=== PATIENT | female | born 1985 | race Caucasian/White ===

== ENCOUNTER 2018-02-23 14:17 | Emergency (ER) | payer OTHER ==
[~2018-02-23] VITALS: Ht 165.1 cm; Wt 57.0 kg
[~2018-02-23 14:17] MED LIST: ADDE20 PO; CYCL-36 PO; HYDR2TAB PO; MELA10TA3 PO; TIZA4 PO
[2018-02-23 14:31] VITALS: BP 118/83; PULSE 86; RESP 16; TEMP 98.4
--- NOTE | 2018-02-23 15:04 | PD ---
HPI Chief Complaint: Psychiatric Symptoms Time Seen by Provider: 14:59 Travel History International Travel<30 days: No Contact w/Intl Traveler<30days: No Traveled to known affect area: No History of Present Illness HPI Patient 32-year-old female presents emergency department for evaluation under Lawrence act. According to Lawrence act the patient is being driven by mother to a facility for psychiatric evaluation, when she revealed to her daughter that she was taking her for psychiatric evaluation she stated that she wanted to jump out of the car and was reluctant to go. Per the patient she asked mom to just warehouse order puller to the side of the road so she can get out. She denies any physical complaints at this time, denies any chest pain shortness breath abdominal pain nausea vomiting diarrhea constipation vaginal bleeding vaginal discharge head injury neck injury self-mutilation. Patient states she has no history of bipolar disorder psychosis or depression, denies any substance or alcohol abuse. Symptoms moderate, context as above, associated signs symptoms as above, duration unknown. PFSH Past Medical History Diminished Hearing: No Musculoskeletal: Yes (fx cervical c6 disc compression thoracic disc prob) Immunizations Current: Yes ?: Not LMP: 1 year ago. On depo shot Social History Alcohol Use: Yes (occ) Tobacco Use: Yes (1/2-1pk) Substance Use: No Allergies-Medications (Allergen,Severity, Reaction): Coded Allergies: No Known Allergies (Unverified , 06/02/16) Reported Meds & Prescriptions Reported Meds & Active Scripts Active Reported Adderall 20 mg (Dextroamphetamine/Amphetamine) 20 Mg Tab 20 Mg PO TID Melatonin (Melatonin-Pyridoxine) 1 Tab Tab 1 Tab PO DIRECTED Flexeril (Cyclobenzaprine HCl) 10 Mg Tab 10 Mg PO TID Zanaflex 4 mg (Tizanidine HCl) 4 Mg Tab 1 Tab PO Q8H Hydromorphone Hcl (Hydromorphone HCl) 2 Mg Tab 2 Mg PO Q4H PRN Review of Systems Except as stated in HPI: all other systems reviewed are Neg Physical Exam Narrative GENERAL: Well-developed well-nourished, provocatively dressed in no obvious distress. The patient is disheveled and smells highly of body odor peer SKIN: Focused skin assessment warm/dry. HEAD: Atraumatic. Normocephalic. EYES: Pupils equal and round. No scleral icterus. No injection or drainage. ENT: No nasal bleeding or discharge. Mucous membranes pink and moist. NECK: Trachea midline. No JVD. CARDIOVASCULAR: Regular rate and rhythm. No murmur appreciated. RESPIRATORY: No accessory muscle use. Clear to auscultation. Breath sounds equal bilaterally. GASTROINTESTINAL: Abdomen soft, non-tender, nondistended. Hepatic and splenic margins not palpable. MUSCULOSKELETAL: No obvious deformities. No clubbing. No cyanosis. No edema. NEUROLOGICAL: Awake and alert. No obvious cranial nerve deficits. Motor grossly within normal limits. Normal speech. PSYCHIATRIC: Patient somewhat bizarre, has a poor attention span, she seems easily startled when I try to talk to her, she denies a history of suicidal homicidal ideation, denies trying to jump out of the car today. She certainly is difficult to keep on subject. Data Data Last Documented VS Vital Signs Date Time Temp Pulse Resp B/P (MAP) Pulse Ox O2 Delivery O2 Flow Rate FiO2 02/23/18 14:31 98.4 86 16 118/83 (95) Orders Orders Complete Blood Count With Diff (02/23/18 14:43) Comprehensive Metabolic Panel (02/23/18 14:43) Thyroid Stimulating Hormone (02/23/18 14:43) Psych Screen (02/23/18 14:43) Drug Screen, Random Urine (02/23/18 14:43) Alcohol (Ethanol) (02/23/18 14:43) MDM Medical Decision Making Medical Screen Exam Complete: Yes Emergency Medical Condition: Yes Differential Diagnosis Substance-induced psychosis, tahs, schizophrenia, Narrative Course Patient room to the emergency department, she has no physical exam findings nor complaints of warrant further workup at this time. Basic labs been ordered including drug screen and alcohol level. She was discussed briefly with Laxmi nurse practitioner diagnostic medical sonographer for psychiatry. She will evaluate the patient later this afternoon. Patient is medically cleared for psychiatric evaluation at this time. Diagnosis Primary Impression: Psychosis Condition: Stable Cody Shin MD Feb 23, 2018 15:03
[2018-02-23 15:33] VITALS: BP 114/76; PULSE 83; RESP 16; TEMP 98.7; O2SAT 100
[2018-02-23 15:57] LABS: AUTOMATED NEUTROPHIL # 7.7 TH/MM3 (1.8-7.7); BASOPHIL # 0.1 TH/MM3 (0-0.2); BASOPHIL % 0.8 % (0.0-2.0); EOSINOPHIL # 0.1 TH/MM3 (0-0.4); EOSINOPHIL % 0.6 % (0.0-4.0); HEMOGLOBIN 13.9 GM/DL (11.6-15.3); LYMPH % 17.5 % (9.0-44.0); LYMPHOCYTE # 1.8 TH/MM3 (1.0-4.8); MEAN CELL VOLUME 93.8 FL (80.0-100.0); MEAN CORPUSCULAR HEMOGLOBIN 31.7 PG (27.0-34.0); MEAN CORPUSCULAR HGB CONC 33.8 % (32.0-36.0); MEAN PLATELET VOLUME 8.1 FL (7.0-11.0); MONO % 5.7 % (0.0-8.0); MONOCYTE # 0.6 TH/MM3 (0-0.9); NEUT % 75.4 % (16.0-70.0); PLATELET COUNT 391 TH/MM3 (150-450); RED BLOOD COUNT 4.37 MIL/MM3 (4.00-5.30); RED CELL DISTRIBUTION WIDTH 13.9 % (11.6-17.2); WHITE BLOOD COUNT 10.3 TH/MM3 (4.0-11.0)
[2018-02-23] MEDS ORDERED: HYDR-3133 PO (16:13)
[2018-02-23] MEDS ORDERED: CYCL10TA PO (16:13)
[2018-02-23] MEDS ORDERED: TRAZ50TA12 PO (16:13)
[2018-02-23 16:14] LABS: ALBUMIN 4.3 GM/DL (3.4-5.0); ALT (GPT) 23 U/L (10-53); AST (GOT) 18 U/L (15-37); BICARBONATE 23.6 MEQ/L (21.0-32.0); BLOOD UREA NITROGEN 11 MG/DL (7-18); CALCIUM 8.9 MG/DL (8.5-10.1); CHLORIDE 107 MEQ/L (98-107); GLOMERULAR FILTRATION RATE 82 ML/MIN (>89); GLUCOSE,RANDOM 97 MG/DL (74-106); SODIUM (NA) 141 MEQ/L (136-145)
[2018-02-23 16:25] LABS: ALKALINE PHOSPHATASE 63 U/L (45-117); TOTAL BILIRUBIN ADULT 0.4 MG/DL (0.2-1.0)
[2018-02-23 18:00] VITALS: BP 134/86; PULSE 96; RESP 16; TEMP 98.6; O2SAT 100
[2018-02-24 02:17] VITALS: BP 125/85; PULSE 93; RESP 18; TEMP 99.4; O2SAT 100
[2018-02-24 05:45] VITALS: BP 108/71; PULSE 98; RESP 20; TEMP 97.2; O2SAT 100
--- NOTE | 2018-02-24 12:39 | PD ---
Physical Exam Date Seen by Provider: Feb 24, 2018 Time Seen by Provider: 12:37 Narrative 32-year-old female previously medically cleared for psychiatric evaluation, has been seen and evaluated by psychiatric staff and deemed psychiatrically stable for discharge at this time. Patient remains medically stable at this time. Psychiatric follow-up will be based on the psychiatric note. Data Data Last Documented VS Vital Signs Date Time Temp Pulse Resp B/P (MAP) Pulse Ox O2 Delivery O2 Flow Rate FiO2 02/24/18 05:45 97.2 98 20 108/71 (83) 100 Room Air Orders Orders Complete Blood Count With Diff (02/23/18 14:43) Comprehensive Metabolic Panel (02/23/18 14:43) Thyroid Stimulating Hormone (02/23/18 14:43) Psych Screen (02/23/18 14:43) Drug Screen, Random Urine (02/23/18 14:43) Alcohol (Ethanol) (02/23/18 14:43) Ed Urine Pregnancytest Poc (02/23/18 15:32) Diet Regular Basic (02/24/18 Breakfast) Diet Regular Basic (02/24/18 Lunch) Labs Laboratory Tests Test 02/23/18 14:25 02/23/18 14:57 Urine Opiates Screen NEG Urine Barbiturates Screen NEG Urine Amphetamines Screen NEG Urine Benzodiazepines Screen NEG Urine Cocaine Screen NEG Urine Cannabinoids Screen NEG White Blood Count 10.3 TH/MM3 Red Blood Count 4.37 MIL/MM3 Hemoglobin 13.9 GM/DL Hematocrit 41.0 % Mean Corpuscular Volume 93.8 FL Mean Corpuscular Hemoglobin 31.7 PG Mean Corpuscular Hemoglobin Concent 33.8 % Red Cell Distribution Width 13.9 % Platelet Count 391 TH/MM3 Mean Platelet Volume 8.1 FL Neutrophils (%) (Auto) 75.4 % Lymphocytes (%) (Auto) 17.5 % Monocytes (%) (Auto) 5.7 % Eosinophils (%) (Auto) 0.6 % Basophils (%) (Auto) 0.8 % Neutrophils # (Auto) 7.7 TH/MM3 Lymphocytes # (Auto) 1.8 TH/MM3 Monocytes # (Auto) 0.6 TH/MM3 Eosinophils # (Auto) 0.1 TH/MM3 Basophils # (Auto) 0.1 TH/MM3 CBC Comment DIFF FINAL Differential Comment Blood Urea Nitrogen 11 MG/DL Creatinine 0.80 MG/DL Random Glucose 97 MG/DL Total Protein 8.0 GM/DL Albumin 4.3 GM/DL Calcium Level 8.9 MG/DL Alkaline Phosphatase 63 U/L Aspartate Amino Transf (AST/SGOT) 18 U/L Alanine Aminotransferase (ALT/SGPT) 23 U/L Total Bilirubin 0.4 MG/DL Sodium Level 141 MEQ/L Potassium Level 3.9 MEQ/L Chloride Level 107 MEQ/L Carbon Dioxide Level 23.6 MEQ/L Anion Gap 10 MEQ/L Estimat Glomerular Filtration Rate 82 ML/MIN Thyroid Stimulating Hormone 3rd Gen 0.667 uIU/ML Ethyl Alcohol Level LESS THAN 3 MG/DL MDM Medical Record Reviewed: Yes Supervised Visit with GENO: Yes Narrative Course 32-year-old female previously medically cleared for psychiatric evaluation, has been seen and evaluated by psychiatric staff and deemed psychiatrically stable for discharge at this time. Patient remains medically stable at this time. Psychiatric follow-up will be based on the psychiatric note. Diagnosis Primary Impression: Psychosis Patient Instructions: General Instructions Disposition: DISCHARGE HOME Condition: Stable Fernando Pérez Feb 24, 2018 12:39
--- NOTE | 2018-02-24 16:04 | PD.PSY.CON ---
Provisional Diagnosis Admission Date Dulzura I. Adjustment disorder with disturbance of conduct History of Present Illness Service Psychiatry Consult Requested By ER Reason for Consult Psychosis Primary Care Physician Unknown HPI The patient is a 32-year-old woman, domiciled alone in the [place], single, no kids, unemployed with psychiatric history of bipolar disorder, but no psychiatric hospitalizations, no suicide attempts. Presents emergency department for evaluation under Lawrence act. According to Lawrence act the patient is being driven by mother to a facility for psychiatric evaluation, when she revealed to her daughter that she was taking her for psychiatric evaluation she stated that she wanted to jump out of the car and was reluctant to go. Per the patient she asked mom to just pull up hand to the side of the road so she can get out. On psychiatric evaluation the patient reports that she has been in a good mood, denies depressive symptoms, she denies hopelessness, denies helplessness, denies suicidal and homicidal ideation, denies visual and auditory hallucinations. On longitudinal observation in the ER the patient has been calm , cooperative, appropriate, interacting appropriately with staff. No paranoia, no delusions, no disorganized speech or behavior present. Past Family Social History Coded Allergies: No Known Allergies (Unverified , 06/02/16) Reported Medications Cyclobenzaprine (Flexeril) 10 Mg Tab, 10 MG PO TID Y for MUSCLE PAIN, #90 TAB 0 Refills 02/23/18 Hydroxyzine HCl (Hydroxyzine HCl) 25 Mg Tab, PO DAILY, TAB 0 Refills 02/23/18 Trazodone (Trazodone) 50 Mg Tab, PO HS for Control Depression, #30 TAB 0 Refills 02/23/18 Discontinued Reported Medications Dextroamphetamine/Amphetamine (Adderall 20 mg) 20 Mg Tab, 20 MG PO TID 06/03/16 Melatonin-Pyridoxine (Melatonin) 1 Tab Tab, 1 TAB PO DIRECTED, TAB 06/02/16 Cyclobenzaprine Hcl (Flexeril) 10 Mg Tab, 10 MG PO TID, TAB 06/02/16 Tizanidine 4 mg (Zanaflex 4 mg) 4 Mg Tab, 1 TAB PO Q8H, TAB 06/02/16 Hydromorphone Hcl (Hydromorphone Hcl) 2 Mg Tab, 2 MG PO Q4H Y for PAIN SCALE 1 TO 7, TAB 06/02/16 Physical Exam Vital Signs Vital Signs Date Time Temp Pulse Resp B/P (MAP) Pulse Ox O2 Delivery O2 Flow Rate FiO2 02/24/18 12:54 02/24/18 05:45 97.2 98 20 100 Room Air Mental Status Examination Appearance: Appropriate Consciousness: Alert Orientation: x4 Motor Activity: Normal gait Speech: Unremarkable Language: Adequate Fund of Knowledge: Adequate Attention and Concentration: Adequate Memory: Unremarkable Mood: Appropriate Affect: Appropriate Thought Process & Associations: Intact Thought Content: Appropriate Hallucination Type: None Delusion Type: None Suicidal Ideation: No Suicidal Plan: No Suicidal Intention: No Homicidal Ideation: No Homicidal Plan: No Homicidal Intention: No Insight: Adequate Judgment: Adequate Assessment & Plan Problem List: (1) Adjustment disorder with disturbance of conduct ICD Codes: F43.24 - Adjustment disorder with disturbance of conduct Assessment & Plan: The patient does not present any concerning her significant psychiatric symptoms that require immediate psychiatric intervention at this moment. Patient denies depression, denies anxiety, denies psychosis and tash. She denies suicidal and homicidal ideation. The patient does not present any evidence of psychosis at this moment. Lawrence act will be lifted Assessment & Plan Estimated LOS: Jay Arnold MD Feb 24, 2018 16:04
== END 2018-02-24 12:50 | disposition home or self-care (01) ==
LOC: NEPJ 14:17
DX: F29 Unspecified psychosis not due to a substance or known physiological condition (principal); F43.24 Adjustment disorder with disturbance of conduct; F17.200 Nicotine dependence, unspecified, uncomplicated; Z79.899 Other long term (current) drug therapy; Z87.39 Personal history of other diseases of the musculoskeletal system and connective tissue; Z86.59 Personal history of other mental and behavioral disorders
CPT/HCPCS: 80053; 80307; 84443; 84703; 85025; 99283

== ENCOUNTER 2018-06-23 22:47 | Inpatient (IN) ==
--- NOTE | 2018-06-23 23:08 | ED ---
HPI General Chief complaint: Psychiatric Symptoms Stated complaint: Psych eval / NSBPD Time Seen by Provider: 06/23/18 23:05 History of Present Illness HPI narrative: 32 Y/O Female here under BA initiated by . According to paperwork the patient was hearing voices telling her to harm herself. The patient disputes this. She reports that she was having an argument with her mother. According to PD there is a recording of her acting bizarre that the mother took. Patient denies AH/VH, SI/HI, drug or alcohol use. Symptoms moderate, duration unknown, no obvious aggravating/alleviating factors. Related Data Home Medications Medication Instructions Recorded Confirmed alprazolam [Xanax] 0.25 mg PO BID 06/23/18 06/23/18 Allergies Allergy/AdvReac Type Severity Reaction Status Date / Time No Known Allergies Allergy Uncoded 06/02/16 11:09 Review of Systems ROS: all other systems reviewed are negative PMFSH Medical History Medical History Patient denies medical problems (Acute) Surgical History Surgical History No history of previous surgery (Acute) Social History Social History Substance History: No History of Abuse Second Hand Smoke Exposure: No Smoking Status: Never smoker How Often Do You Have a Drink Containing Alcohol: Never Recent Travel in [facility] within the Last 8 Weeks: No Recent Out of Country Travel within the Last 8 Weeks: No Exam Narrative Exam Narrative: GENERAL: Well-developed well-nourished female no acute distress SKIN: Warm and dry. HEAD: Atraumatic. Normocephalic. EYES: Pupils equal and round. No scleral icterus. No injection or drainage. ENT: No nasal bleeding or discharge. Mucous membranes pink and moist. NECK: Trachea midline. No JVD. CARDIOVASCULAR: Regular rate and rhythm. No murmur appreciated. RESPIRATORY: No accessory muscle use. Clear to auscultation. Breath sounds equal bilaterally. GASTROINTESTINAL: Abdomen soft, non-tender, nondistended. Hepatic and splenic margins not palpable. MUSCULOSKELETAL: No obvious deformities. No clubbing. No cyanosis. No edema. NEUROLOGICAL: Awake and alert. No obvious cranial nerve deficits. Motor grossly within normal limits. Normal speech. PSYCHIATRIC: Appropriate mood and affect; insight and judgment normal. Course Initial Documented Vital Signs Temperature 99 F 06/23/18 23:10 Pulse Rate 86 06/23/18 23:10 Blood Pressure 105/70 06/23/18 23:10 Pulse Oximetry 86 L 06/23/18 23:10 Last Documented Vital Signs Temperature 99 F 06/23/18 23:10 Pulse Rate 86 06/23/18 23:10 Blood Pressure 105/70 06/23/18 23:10 Pulse Oximetry 86 L 06/23/18 23:10 Medical Decision Making MDM Narrative Medical decision making narrative: Mental health screening discussed with the patient. Psychiatric screen ordered. Drug screen is positive for benzodiazepines otherwise lab work is unremarkable. The patient is medically cleared for psychiatric disposition. Medical Screen Exam Complete: Yes Emergency Medical Condition: Yes Differential Diagnosis Differential Diagnosis: Acute psychosis, adjustment reaction, substance-induced mood disorder, schizophrenia, bipolar disorder Lab Data Result diagrams: 06/23/18 23:25 06/23/18 23:25 POC Results POC Urine Results Negative Lab Results 06/23/18 06/23/18 06/23/18 Range/Units 23:25 23:25 23:25 WBC 8.9 (4.0-11.0) th/mm3 RBC 4.50 (4.00-5.30) mil/mm3 Hgb 14.5 (11.6-15.3) gm/dL Hct 42.1 (35.0-46.0) % MCV 93.6 (80.0-100.0) fL MCH 32.2 (27.0-34.0) pg MCHC 34.4 (32.0-36.0) % RDW 13.4 (11.6-17.2) % Plt Count 290 (150-450) th/mm3 MPV 8.7 (7.0-11.0) fL Neut % (Auto) 62.6 (16.0-70.0) % Lymph % (Auto) 28.3 (9.0-44.0) % [place] % (Auto) 6.2 (0.0-8.0) % Eos % (Auto) 1.9 (0.0-4.0) % Baso % (Auto) 1.0 (0.0-2.0) % Neut # (Auto) 5.6 (1.8-7.7) th/mm3 Lymph # (Auto) 2.5 (1.0-4.8) th/mm3 [place] # (Auto) 0.5 (0.0-0.9) th/mm3 Eos # (Auto) 0.2 (0.0-0.4) th/mm3 Baso # (Auto) 0.1 (0.0-0.2) th/mm3 WBC Differential . Differential Comment Auto diff final Sodium 142 (136-145) meq/L Potassium 3.9 (3.5-5.1) meq/L Chloride 112 H (98-107) meq/L Carbon Dioxide 20.2 L (21.0-32.0) meq/L Anion Gap 10 (5-15) meq/L BUN 16 (7-18) mg/dL Creatinine 0.72 (0.50-1.00) mg/dL Estimated GFR Greater than 89 (>89) mL/min Random Glucose 96 (74-106) mg/dL Calcium 8.9 (8.5-10.1) mg/dL Total Bilirubin 0.3 (0.2-1.0) mg/dL AST 12 L (15-37) U/L ALT 20 (10-53) U/L Alkaline Phosphatase 52 (45-117) U/L Total Protein 7.7 (6.4-8.2) g/dL Albumin 4.1 (3.4-5.0) g/dL TSH 1.440 (0.358-3.740) uIU/mL Urine Opiates Screen Neg (Neg) Ur Barbiturates Screen Neg (Neg) Ur Amphetamines Screen Neg (Neg) U Benzodiazepines Scrn Pos H (Neg) Urine Cocaine Screen Neg (Neg) U Cannabinoids Screen Neg (Neg) Serum Alcohol Less than 3 (0-5) mg/dL Discharge Plan Discharge Disposition Patient Disposition: 30 Still Patient Discharge Condition Condition: Stable Discharge Details Diagnosis: Encounter for medical clearance for patient hold Physicians Team ED Provider: Sharan Chand ED Midlevel Provider: Sukhi Mcgowan Primary Care Provider: UNKNOWN, Rxs /Orders / Referrals /Forms Prescriptions: No Action alprazolam [Xanax] 0.25 mg Tablet 0.25 mg PO BID RF: 0 Status ED Status: Medically Cleared
[2018-06-23 23:42] LABS: Baso # (Auto) 0.1 th/mm3 (0.0-0.2); Eos # (Auto) 0.2 th/mm3 (0.0-0.4); Eos % (Auto) 1.9 % (0.0-4.0); Hematocrit 42.1 % (35.0-46.0); Hemoglobin 14.5 gm/dL (11.6-15.3); Lymph # (Auto) 2.5 th/mm3 (1.0-4.8); Lymph % (Auto) 28.3 % (9.0-44.0); Mean Corpuscular HGB Conc 34.4 % (32.0-36.0); Mean Corpuscular Hemoglobin 32.2 pg (27.0-34.0); Mean Corpuscular Volume 93.6 fL (80.0-100.0); Mean Platelet Volume 8.7 fL (7.0-11.0); Mono # (Auto) 0.5 th/mm3 (0.0-0.9); Mono % (Auto) 6.2 % (0.0-8.0); Neut # (Auto) 5.6 th/mm3 (1.8-7.7); Neut % (Auto) 62.6 % (16.0-70.0); Platelet Count 290 th/mm3 (150-450); Red Cell Distribution Width 13.4 % (11.6-17.2); White Blood Count 8.9 th/mm3 (4.0-11.0)
[2018-06-23 23:48] LABS: Amphetamine Screen,Urine Neg (Neg); Barbiturate Screen,Urine Neg (Neg); Cannabinoid Screen,Urine Neg (Neg); Cocaine Screen,Urine Neg (Neg)
[2018-06-23 23:50] LABS: Opiate Screen,Urine Neg (Neg)
[2018-06-23 23:53] LABS: Alanine Aminotransferase 20 U/L (10-53); Albumin 4.1 g/dL (3.4-5.0); Anion Gap 10 meq/L (5-15); Aspartate Aminotransferase 12 U/L (15-37); Blood Urea Nitrogen 16 mg/dL (7-18); Calcium 8.9 mg/dL (8.5-10.1); Carbon Dioxide 20.2 meq/L (21.0-32.0); Chloride 112 meq/L (98-107); Glomerular Filtration Rate Greater Than 89 mL/min (>89); Glucose,Random 96 mg/dL (74-106); Potassium 3.9 meq/L (3.5-5.1); Sodium 142 meq/L (136-145)
[2018-06-24 00:03] LABS: Alkaline Phosphatase 52 U/L (45-117); Total Protein 7.7 g/dL (6.4-8.2)
[2018-06-24] MEDS ORDERED: LORazepam 1 MG Tablet PO PRN (12:08)
[2018-06-24] MEDS ORDERED: Bisacodyl 10 MG Supp RECTAL PRN (12:08)
[2018-06-24] MEDS ORDERED: Haloperidol Inj 5 MG/ML Ampul IV.PUSH PRN (12:08)
[2018-06-24] MEDS ORDERED: Aluminum/Magnesium/Simethacone Susp 30 ML UDC PO PRN (12:08)
--- NOTE | 2018-06-24 16:23 | P.HPPSY ---
Provisional Diagnosis Admission Date: June 24, 2018 15:03 [place] I.: Unspecified psychosis, R/O Schizophrenia, Hx of anxiety [place] II.: R/O personality disorder Competence Certification of Person's Competence To Provide Express and Informed Consent I have personally examined Radha Garduno, a person being served at [facility] on, June 24, 2018 1606. Express and informed consent means consent voluntarily given in writing, by a competent person, after sufficient explanation and disclosure of the subject matter involved to enable the person to make a knowing and willful decision without any element of force, fraud, deceit, duress, or other form of constraint or coercion. This person is 18 years of age or older, is not now known to be incompetent to consent to treatment with a guardian advocate, and does not have a health care surrogate or proxy currently making medical treatment decisions. I have found this person to be one of the following: [] Competent to provide express and informed consent, as defined above, for voluntary admission to this facility and is competent to provide express and informed consent for treatment. He/she has the consistent capacity to make well reasoned, willful, and knowing decisions concerning his or her medical or mental health treatment. The person fully and consistently understands the purpose of the admission for examination/placement and is fully capable of personally exercising all rights assured under [place] Incompetent to provide express and informed consent to voluntary admission, and this is incompetent to provide express and informed consent to treatment. The person must be transferred to involuntary status and a petition for a guardian advocate filed with the Circuit Court. [X] Refusing to provide express and informed consent to voluntary admission but is competent to provide express and informed consent for treatment. The person must be discharged or transferred to involuntary status. Form shall be completed within 24 hours of a person's arrival at the receiving facility and filed in the clinical record of each person: 1. Admitted on a voluntary basis 2. Permitted to provide express and informed consent to his/her own treatment 3. Allowed to transfer from involuntary to voluntary status 4. Prior to permitting a person to consent to his or her own treatment after having been previously found incompetent to consent to treatment. History of Present Illness Capacity: Has capacity History of Present Illness: The patient is a 32 year-old woman, domiciled with her mother claudia Lynch, single, unemployed, with psychiatric history of anxiety, but no previous psychiatric hospitalizations, no previous suicidal attempts, she has been seen once here in the ER on the [place] at, but clear, no significant medical history, who is here under BA initiated by . According to paperwork the patient was hearing voices telling her to harm herself. The patient disputes this. She reports that she was having an argument with her mother. According to PD there is a recording of her acting bizarre that the mother took. Patient denies AH/VH, SI/HI, drug or alcohol use. Symptoms moderate, duration unknown, no obvious aggravating/alleviating factors. Chart was reviewed. Collateral information from her mother was obtained. 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 Poorly. On my evaluation today the patient is truly very childish, an infantile voice, he stated that she is here because her mother does agree with her keeping her virginity "because I belong to a yazidi organization". 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 She is very bizarre, and oddly related. With a very bizarre affect, laughing inappropriately. She denies suicidal and homicidal ideation, she denies visual and auditory hallucinations PPHx: Anxiety, Xanax 1 mg 3 times daily prescribed by PCP, no previous admissions, no previous suicidal PMHx: No past medical Substance Hx: The patient denies the use of illegal drugs and alcohol Family Hx: No family psychiatric history Social Hx: Patient was born and raised in [place], she she lives in [facility] with her mother, single, unemployed, - Inpatient Certification I certify that the inpatient services were ordered in accordance with Medicare regulations governing the order. This includes certification that hospital inpatient services are reasonable and necessary and in the case of services not specified as inpatient-only under 42 CFR 419.22(n), that they are appropriately provided as inpatient services in accordance to with the 2-midnight benchmark under 43 CFR 412.3(e) I certify that inpatient psychiatric hospital services are medically necessary. Evaluation and treatment and/or diagnostic testing are expected to improve the patient's condition. The patient needs on a daily basis, active treatment furnished directly by or requiring the supervision of inpatient psychiatric facility personnel. Estimated Total Length of Stay (Days): 14 Plans for Post Hospital Care: Home Review of Systems Constitutional: Denies anorexia, Denies body ache(s), Denies chills, Denies daytime sleepiness, Denies excessive sweating, Denies fatigue, Denies fever(s), Denies headache(s), Denies increased appetite, Denies lack of energy, Denies malaise, Denies night sweats, Denies weakness, Denies weight gain, Denies weight loss, Denies other Eyes: Denies blind spots, Denies blurry vision, Denies bulging eyes, Denies change in vision, Denies double vision, Denies discharge, Denies dry eyes, Denies floaters, Denies irritation, Denies itchy eyes, Denies loss of vision, Denies pain, Denies requires corrective lenses, Denies sensitivity to light, Denies other Ears, Nose, Mouth, and Throat: Reports abnormal hearing, Denies bleeding gums, Denies bad breath, Denies change in voice, Denies dental pain, Denies difficulty swallowing, Denies dizziness, Denies dry mouth, Denies ear discharge , Denies ear pain, Denies facial pain, Denies headache(s), Denies hearing loss, Denies hoarseness, Denies lip swelling, Denies nosebleed, Denies mouth lesions, Denies mouth pain, Denies nasal congestion, Denies nasal discharge, Denies nasal obstruction, Denies nasal trauma, Denies neck lump, Denies neck pain, Denies nose pain, Denies pain with swallowing, Denies poor balance, Denies post nasal drip, Denies ringing in the ears, Denies sinus pain, Denies sinus pressure , Denies sore throat, Denies throat swelling, Denies tongue swelling, Denies other Cardiovascular: Denies chest pain at rest, Denies chest pain with activity, Denies excessive sweating, Denies fainting, Denies fast heart rate, Denies foot swelling, Denies generalized swelling, Denies irregular heart rhythm, Denies leg pain with activity, Denies leg sores, Denies leg swelling, Denies lightheadedness, Denies radiating jaw, neck or arm pain, Denies rapid, pounding , or irregular heartbeat, Denies shortness of breath, Denies shortness of breath with activity, Denies shortness of breath when lying down, Denies shortness of breath causing sudden awakening, Denies slow heart rate, Denies other Respiratory: Denies chest congestion, Denies cough, Denies coughing up blood, Denies excessive phlegm production, Denies pain on inspiration, Denies pain with cough, Denies shortness of breath, Denies shortness of breath with activity , Denies snoring, Denies stridor, Denies wheezing, Denies other Gastrointestinal: Denies belching, Denies black, tarry stools, Denies bloating, Denies bright, red blood in stools, Denies change in bowel habits, Denies constant urge to pass stool, Denies change in stools, Denies coffee ground vomit , Denies constipation, Denies cramping, Denies difficulty swallowing, Denies excessive passing of gas, Denies feeling full early, Denies heartburn, Denies incontinent of stools, Denies loose stools, Denies nausea, Denies pain with swallowing, Denies vomiting, Denies vomiting blood, Denies other Genitourinary: Denies abnormal vaginal bleeding, Denies absent period, Denies bleeding between periods, Denies blood in urine, Denies difficulty starting urination, Denies difficulty urinating, Denies dribbling after urination, Denies frequent nighttime urination, Denies genital itching, Denies genital lesions, Denies heavy periods, Denies hot flashes, Denies light periods, Denies nipple discharge, Denies painful intercourse, Denies painful periods, Denies painful urination, Denies pelvic pain, Denies prolapse symptoms, Denies sexual problems, Denies side pain, Denies urinary incontinence, Denies urinary urgency , Denies vaginal discharge, Denies vaginal dryness, Denies vaginal odor, Denies vaginal itching, Denies other Musculoskeletal: Denies abnormal walking, Denies back pain, Denies body aches, Denies decreased muscle mass, Denies deformity, Denies joint pain, Denies joint swelling, Denies limited joint movement, Denies loss of height, Denies muscle cramps, Denies muscle weakness, Denies neck pain, Denies numbness, Denies radiating pain into limb, Denies stiffness, Denies tingling, Denies other Skin/Breast: Reports acne, Denies bleeding lesions, Denies boil, Denies breast swelling, Denies breast skin changes, Denies breast pain, Denies breast lump, Denies change in breast shape, Denies change in hair, Denies change in skin color, Denies changing lesions, Denies dry skin, Denies excessive hair growth, Denies hair loss, Denies itching, Denies lesions, Denies nail changes, Denies new lesions, Denies nipple discharge, Denies non-healing lesions, Denies redness , Denies sensitivity to light, Denies rash, Denies skin pain, Denies skin ulcer , Denies sores, Denies stretch adkins, Denies unusual bruising, Denies wounds, Denies yellowing of the skin, Denies other Neurologic: Denies abnormal hearing, Denies abnormal movements, Denies abnormal speech, Denies abnormal walking, Denies behavioral changes, Denies burning sensations, Denies confusion, Denies dizziness, Denies fainting, Denies frequent falls, Denies headache(s), Denies lack of coordination, Denies localized weakness, Denies loss of vision, Denies memory loss, Denies numbness, Denies other visual disturbances, Denies radiating pain, Denies restless legs, Denies convulsions, Denies seizure-like activity, Denies sensory deficit, Denies tingling, Denies tingling/numbness/burning sensations, Denies tremor(s), Denies unsteadiness, Denies weakness, Denies other Psychiatric: Denies abnormal sleep pattern, Denies anxiety, Denies behavioral changes, Denies change in appetite, Denies change in sex drive, Denies confusion , Denies depression, Denies difficulty concentrating, Denies hearing things others do not hear, Denies hopelessness, Denies irritability, Denies lack of enjoyment, Denies memory loss, Denies mood swings, Denies panic attacks, Denies paranoia, Denies seeing things others do not see, Denies sensing things others do not sense, Denies tactile hallucinations, Denies thoughts of hurting/killing others, Denies thoughts of hurting/killing yourself, Denies other Endocrine: Denies cold intolerance, Denies excessive sweating, Denies flushing, Denies heat intolerance, Denies increased hunger, Denies increased thirst, Denies increased urination, Denies rapid, pounding, or irregular heartbeat, Denies other PMFSH - History History Provided By: Patient - Medical History Medical History: Medical History (Last Updated 06/23/18 @ 23:15 by Gopi Faulkner) Patient denies medical problems - Surgical History Surgical History: Surgical History (Last Updated 06/23/18 @ 23:16 by Gopi Faulkner) No history of previous surgery - Tobacco History Second Hand Smoke Exposure: No Smoking Status: Never smoker - Alcohol History How Often Do You Have a Drink Containing Alcohol: Never - Substance Use History Substance History: No History of Abuse - Travel History Recent Travel in the [place] Within the Last 8 Weeks: No Recent Travel Out of the Country Within the Last 8 Weeks: No - Immunization History Tetanus Immunization: Unsure Hx Influenza Vaccine This Season: No Medications and Allergies Active Medications: Active Medications Al Hydrox/Mg Hydrox/Simethicone (Mag-Al Plus Susp Liq) 30 ml PO Q6H PRN PRN Reason: DYSPEPSIA Al Hydroxide/Mg Hydroxide (Milk Of Magnesia Liq) 30 ml PO Q12H PRN PRN Reason: Mild Constipation Aripiprazole (Abilify) 5 mg PO DAILY RANCHO Bisacodyl (Dulcolax Supp) 10 mg RECTAL DAILY PRN PRN Reason: SEVERE CONSITIPATION Flumazenil (Romazecon Inj) 0.2 mg IV.PUSH Q1M PRN PRN Reason: OVERSEDATION Haloperidol Lactate (Haldol Inj) 1 mg IV.PUSH Q15M PRN PRN Reason: for severe agitation Lactulose (Lactulose Liq) 30 ml PO DAILY PRN PRN Reason: SEVERE CONSITIPATION Lorazepam (Ativan) 1 mg PO Q4H PRN PRN Reason: for CIWA 8-10 Lorazepam (Ativan) 2 mg PO Q2H PRN PRN Reason: for CIWA 11-14 Lorazepam (Ativan Inj) 2 mg IV.PUSH Q1H PRN PRN Reason: for CIWA 15-20 Lorazepam (Ativan Inj) 2 mg IV.PUSH Q15M PRN PRN Reason: for CIWA > 20 Lorazepam (Ativan Inj) 1 mg IV.PUSH Q4H PRN PRN Reason: for CIWA 8-10 Lorazepam (Ativan Inj) 2 mg IV.PUSH Q2H PRN PRN Reason: for CIWA 11-14 Senna/Docusate Sodium (Modesta-Colace) 1 tab PO BID RANCHO Sennosides (Senokot) 17.2 mg PO Q12H PRN PRN Reason: Moderate Constipation Allergies Allergy/AdvReac Type Severity Reaction Status Date / Time No Known Allergies Allergy Uncoded 06/02/16 11:09 Home Medications Medication Instructions Recorded Confirmed Type alprazolam [Xanax] 0.25 mg PO BID 06/23/18 06/23/18 History Results - Labs CBC & Chem 7: 06/23/18 23:25 06/23/18 23:25 Labs: Laboratory Results - last 24 hr 06/23/18 06/23/18 06/23/18 23:25 23:25 23:25 WBC 8.9 RBC 4.50 Hgb 14.5 Hct 42.1 MCV 93.6 MCH 32.2 MCHC 34.4 RDW 13.4 Plt Count 290 MPV 8.7 Neut % (Auto) 62.6 Lymph % (Auto) 28.3 Lea % (Auto) 6.2 Eos % (Auto) 1.9 Baso % (Auto) 1.0 Neut # (Auto) 5.6 Lymph # (Auto) 2.5 Lea # (Auto) 0.5 Eos # (Auto) 0.2 Baso # (Auto) 0.1 WBC Differential . Differential Comment Auto diff final Sodium 142 Potassium 3.9 Chloride 112 H Carbon Dioxide 20.2 L Anion Gap 10 BUN 16 Creatinine 0.72 Estimated GFR Greater than 89 Random Glucose 96 Calcium 8.9 Total Bilirubin 0.3 AST 12 L ALT 20 Alkaline Phosphatase 52 Total Protein 7.7 Albumin 4.1 TSH 1.440 Urine Opiates Screen Neg Ur Barbiturates Screen Neg Ur Amphetamines Screen Neg U Benzodiazepines Scrn Pos H Urine Cocaine Screen Neg U Cannabinoids Screen Neg Serum Alcohol Less than 3 Exam Vital signs: Vital Signs 06/23/18 23:10 06/24/18 02:12 06/24/18 02:14 Temperature 99 F 98.2 F Pulse Rate 86 64 Respiratory Rate 18 Blood Pressure 105/70 107/58 L Pulse Oximetry 98 98 06/24/18 06:27 Temperature Pulse Rate 84 Respiratory Rate 16 Blood Pressure 111/69 Pulse Oximetry 98 Intake & Output 08/06/24/18 06/24/18 18:59 06:59 18:59 Weight 54.683 kg Narrative: No withdrawal symptoms, no EPS, no psychomotor agitation retardation, no stiffness, no gait disturbance - Constitutional no acute distress - Routine HEENT Exam Head: Present: normocephalic Eye: Present: EOMI, PERRL Mental Status Examination Appearance: Appropriate Consciousness: Alert Orientation: x4 Motor Activity: Normal gait Speech: Unremarkable Language: Adequate Fund of Knowledge: Adequate Attention and Concentration: Adequate Memory: Unremarkable Mood: Oppositional Affect: Irritable, Labile Thought Process & Associations: Intact Thought Content: Bizarre thinking Hallucination Type: None Delusion Type: Bizarre, Paranoid Suicidal Ideation: Yes Suicidal Plan: No Suicidal Intention: No Homicidal Ideation: No Homicidal Plan: No Homicidal Intention: No Insight: Poor Judgment: Poor Assessment and Plan - Assessment (1) Unspecified psychosis Code(s): F29 - Unspecified psychosis not due to a substance or known physiological condition Status: Acute - Plan Plan: Estimated LOS: [] days My psychiatric evaluation the patient is quite childish, oppositional, with very inappropriate affect and oddly related, and stated that she does not need to be here anymore. 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 Apparently the patient has been stating that she wants to commit suicide at home, her mother is very concerned about her change in behavior and thought process, she has been quite delusional, calling 911 stating that she is being followed by the FBI. She also, as per mother, a times states she is 11 y/o. she has not been formally diagnosed with any psychiatric illness. She Does have anxiety treated by PCP, she is in Xanax 1 mg 3 times daily. Given her level of psychosis and going to admit the patient in psychiatry for stabilization and safety. I will start Abilify 5 mg daily. MARYWA protocol. Unclear if current presentation is secondary to a major psychotic disorder, related with substance abuse or personality disorder. Justification for Continued Inpatient Stay: Patient will be admitted in 2700 unit.
[2018-06-24] MEDS: ARIPiprazole 5 MG Tablet PO SCH (17:15)
[2018-06-24] MEDS: Senna/Docusate Sodium 8.6/50 MG Tablet PO SCH (20:30)
[2018-06-25] MEDS: ARIPiprazole 5 MG Tablet PO SCH (09:17)
[2018-06-25] MEDS: Senna/Docusate Sodium 8.6/50 MG Tablet PO SCH ×2 (09:17→20:58)
--- NOTE | 2018-06-25 15:25 | P.PNPSY ---
Subjective Remarks: This is a request for second opinion. Admission note was reviewed and I agree with the history. Patient was seen and case was discussed with nursing. Today , patient has poor insight concerning her admission. She denies all of her behaviors and thoughts at home. She is childlike in behavior with a whimsical affect. She denies auditory or visual hallucinations. Denies suicidal or homicidal ideation intent or plan. Mental Status Examination Appearance: Appropriate Consciousness: Alert Orientation: x4 Motor Activity: Normal gait Speech: Unremarkable Language: Adequate Fund of Knowledge: Adequate Attention and Concentration: Adequate Memory: Unremarkable Mood: Appropriate Affect: Labile Thought Process & Associations: Intact Thought Content: Bizarre thinking Hallucination Type: None Delusion Type: Bizarre, Paranoid Suicidal Ideation: Yes Suicidal Plan: No Suicidal Intention: No Homicidal Ideation: No Homicidal Plan: No Homicidal Intention: No Insight: Poor Judgment: Poor Assessment and Plan - Assessment (1) Unspecified psychosis Code(s): F29 - Unspecified psychosis not due to a substance or known physiological condition Status: Acute - Plan Plan: I agree with the first opinion to continue petition. Criteria include acute psychosis Justification for Continued Inpatient Stay: Patient would decompensate in a less restrictive setting
[2018-06-26] MEDS: ARIPiprazole 5 MG Tablet PO SCH (08:21)
[2018-06-26] MEDS: Senna/Docusate Sodium 8.6/50 MG Tablet PO SCH ×2 (08:21→21:04)
--- NOTE | 2018-06-26 13:43 | P.PNPSY ---
Subjective Remarks: Patient was seen and case discussed with nursing. Nursing spoke with the mom who says that patient has been acting bizarre and paranoid for the last year. Patient denies this and continues to have poor insight. Patient remains childlike and guarded. Describes her mood today as "tired." No outbursts, getting along well with her roommate. Mental Status Examination Appearance: Appropriate Consciousness: Alert Orientation: x4 Motor Activity: Normal gait Speech: Unremarkable Language: Adequate Fund of Knowledge: Adequate Attention and Concentration: Adequate Memory: Unremarkable Mood: Appropriate Affect: Labile Thought Process & Associations: Intact Thought Content: Bizarre thinking Hallucination Type: None Delusion Type: Bizarre, Paranoid Suicidal Ideation: Yes Suicidal Plan: No Suicidal Intention: No Homicidal Ideation: No Homicidal Plan: No Homicidal Intention: No Insight: Poor Judgment: Poor Assessment and Plan - Assessment (1) Unspecified psychosis Code(s): F29 - Unspecified psychosis not due to a substance or known physiological condition Status: Acute - Plan Plan: Continue current treatment plan Justification for Continued Inpatient Stay: Patient would decompensate in a less restrictive setting
[2018-06-27] MEDS: Senna/Docusate Sodium 8.6/50 MG Tablet PO SCH ×2 (08:41→21:30)
[2018-06-27] MEDS: ARIPiprazole 5 MG Tablet PO SCH (08:41)
[2018-06-27] MEDS ORDERED: ARIPiprazole 5 MG Tablet PO SCH (14:05)
--- NOTE | 2018-06-27 14:12 | P.PNPSY ---
Subjective Remarks: The patient was seen today for psychiatric reevaluation. Case was widely discussed with nursing staff. Documentation from Dr. collins reviewed. My psychiatric evaluation today I find a patient that is calm, superficially cooperative, very childish and oddly related. The patient states that she feels fine, she describes her mood as happy, she says that she needs to be discharged because she has a trip coming very soon. 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 Patient says that she is a singular similar to "[place]". The patient seems to be quite fixed and insight less about the idea of working for the [employer]. However, most of the time the patient remains quite lineal, logical and relevant denies suicidal enemas ideation, she denies visual and auditory hallucinations Mental Status Examination Appearance: Appropriate Consciousness: Alert Orientation: x4 Motor Activity: Normal gait Speech: Unremarkable Language: Adequate Fund of Knowledge: Adequate Attention and Concentration: Adequate Memory: Unremarkable Mood: Appropriate Affect: Labile Thought Process & Associations: Intact Thought Content: Bizarre thinking Hallucination Type: None Delusion Type: Bizarre, Paranoid Suicidal Ideation: Yes Suicidal Plan: No Suicidal Intention: No Homicidal Ideation: No Homicidal Plan: No Homicidal Intention: No Insight: Poor Judgment: Poor Assessment and Plan - Assessment (1) Unspecified psychosis Code(s): F29 - Unspecified psychosis not due to a substance or known physiological condition Status: Acute - Plan Plan: Patient continues to be fixed in the idea that she belongs to the [employer], and 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 Patient also seems to be quite immature and at times very childish. However, her thought process is quite logical, coherent and relevant. She denies any perceptual disturbances, denies suicidal and homicidal ideation. There is no agitation or aggressive behavior. Patient's presentation with her feet,/complex,/or stricture delusion seems to be congruent with a delusional disorder. Increase Abilify to 10 mg Justification for Continued Inpatient Stay: Patient is acutely delusional.
[2018-06-28] MEDS: Senna/Docusate Sodium 8.6/50 MG Tablet PO SCH ×2 (08:45→21:01)
--- NOTE | 2018-06-28 14:35 | P.PNPSY ---
Subjective Remarks: The patient was seen today for psychiatric reevaluation. The case was discussed with nursing staff. I also got collateral information from her mother Laly. The patient continues to be very childish, also acting very bizarre, but she reports to be in a good mood, denies depressive symptoms, she denies suicidal and homicidal ideation. The patient continues to be focusing be discharged because she has an upcoming concert in [place] in 2 weeks "and the [facility] is already coordinating that". 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 as per mother, the patient has been presenting psychotic symptoms for about 2 years now. But at the same time the patient has been more isolated, frequently talking to herself, acting very bizarre, she has change in her interpersonal relationships coming of being a very friendly person to having no friends. Patient has been spending a lot of money in the last years, she has been traveling to multiple countries and putting herself in danger. Her mother clarifies that the patient has being diagnosed with schizoaffective disorder, but no psychotropic medication has been tried so far. Mental Status Examination Appearance: Appropriate Consciousness: Alert Orientation: x4 Motor Activity: Normal gait Speech: Unremarkable Language: Adequate Fund of Knowledge: Adequate Attention and Concentration: Adequate Memory: Unremarkable Mood: Appropriate Affect: Labile Thought Process & Associations: Intact Thought Content: Bizarre thinking Hallucination Type: None Delusion Type: Bizarre, Paranoid Suicidal Ideation: Yes Suicidal Plan: No Suicidal Intention: No Homicidal Ideation: No Homicidal Plan: No Homicidal Intention: No Insight: Poor Judgment: Poor Assessment and Plan - Assessment (1) Unspecified psychosis Code(s): F29 - Unspecified psychosis not due to a substance or known physiological condition Status: Acute - Plan Plan: Patient continues to be acutely psychotic, with fixed and will structure/ complex delusions. As per mother the patient also has been talking to herself, acting bizarre, isolating herself and acting erratically. Will increase Abilify to 15 mg daily. Justification for Continued Inpatient Stay: Continues to be acutely psychotic.
[2018-06-29] MEDS: Senna/Docusate Sodium 8.6/50 MG Tablet PO SCH ×2 (08:53→20:52)
[2018-06-29] MEDS ORDERED: ARIPiprazole 5 MG Tablet PO SCH (09:00)
--- NOTE | 2018-06-29 13:07 | P.PNPSY ---
Subjective Remarks: The patient was seen today for psychiatric reevaluation. The patient is seen in the presence of nursing charge. The case was widely discussed with nursing staff and counselor. On my psychiatric evaluation today the patient initially calm, cooperative and pleasant. Requesting to be discharged today, because she has an income in concert on presentation in another country soon. She says the [facility] is again coordinated this event. Patient has a very poor insight of current psychiatric situation. 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 He has been compliant with medications, no significant side effects reported. In the unit she has been mostly calm, no behavioral problems reported. Mostly quite childlike. Mental Status Examination Appearance: Appropriate Consciousness: Alert Orientation: x4 Motor Activity: Normal gait Speech: Unremarkable Language: Adequate Fund of Knowledge: Adequate Attention and Concentration: Adequate Memory: Unremarkable Mood: Appropriate Affect: Labile Thought Process & Associations: Intact Thought Content: Bizarre thinking Hallucination Type: None Delusion Type: Bizarre, Paranoid Suicidal Ideation: Yes Suicidal Plan: No Suicidal Intention: No Homicidal Ideation: No Homicidal Plan: No Homicidal Intention: No Insight: Poor Judgment: Poor Assessment and Plan - Assessment (1) Unspecified psychosis Code(s): F29 - Unspecified psychosis not due to a substance or known physiological condition Status: Acute - Plan Plan: Patient continues to display symptoms of psychosis, grandiose delusions, paranoia. Will increase Abilify to 20 mg daily. Justification for Continued Inpatient Stay: Continues to be acutely psychotic.
[2018-06-30] MEDS: Senna/Docusate Sodium 8.6/50 MG Tablet PO SCH ×2 (08:14→21:26)
--- NOTE | 2018-06-30 13:16 | P.PNPSY ---
Subjective Remarks: The patient was seen today for psychiatric reevaluation. She was also seen in [employer]. 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 Today in [employer] I learned from her mother that the patient also has been having auditory hallucinations, increased paranoia, has been talking to herself and acting quite disorganized. She also has been emotionally disturbed and have changed in the way she relates interpersonally with friends and family. As per mother, this has been going on for about 2 years, with an exacerbation in the last 2 months. On my evaluation the patient today is irritable, demanding to be discharged, she denies suicidal enemas ideation, she denies visual and auditory hallucinations. Mental Status Examination Appearance: Appropriate Consciousness: Alert Orientation: x4 Motor Activity: Normal gait Speech: Unremarkable Language: Adequate Fund of Knowledge: Adequate Attention and Concentration: Adequate Memory: Unremarkable Mood: Appropriate Affect: Labile Thought Process & Associations: Intact Thought Content: Bizarre thinking Hallucination Type: None Delusion Type: Bizarre, Paranoid Suicidal Ideation: Yes Suicidal Plan: No Suicidal Intention: No Homicidal Ideation: No Homicidal Plan: No Homicidal Intention: No Insight: Poor Judgment: Poor Assessment and Plan - Assessment (1) Unspecified psychosis Code(s): F29 - Unspecified psychosis not due to a substance or known physiological condition Status: Acute - Plan Plan: Patient continues to be delusional. Poor insight of her psychotic condition. As per mother, the patient in the last month has been isolated, paranoid, changing in the way she interacts with people and emotionally, she has been talking to herself, internally preoccupied, having visual and auditory hallucinations. Her presentation added to the additional information given by her mother made me suspect that the patient may have a primary psychotic disorder, most probably schizophrenia rather than a delusional disorder. I increased yesterday her Abilify to 20 mg. Continue same psychotropic regimen today. Will consider starting a mood stabilizer. Since her mother is quite concerned regarding her psychiatric diagnosis versus a neurological diagnosis, I will consult neuropsychologist to help with a better definition of her condition Justification for Continued Inpatient Stay: Patient is acutely psychotic.
[2018-07-01] MEDS ORDERED: ABILIFY MAINTENA 400MG IM ONE (08:45)
--- NOTE | 2018-07-01 08:45 | P.PNPSY ---
Subjective Remarks: The patient was seen today for psychiatric reevaluation. Case was discussed with nursing staff. On psychiatric evaluation the patient is found in her room , she is awake, calm, cooperative and pleasant. The patient reports that he feels much better, denies pain, denies distress and mood symptoms. Very childish and oddly related, but able to answer his all my questions appropriately. The patient reports that she understands that she has a problem , she said that she needs to decrease her number of trips and "dreams". She also says that she accepts the possibility that the "ZITA thing is a fantasy" I might not be true. The patient says that she understand that she needs to continue her medications, and she prefers depot medication rather than p.o. medications. She denies suicidal enemas ideation, she denies visual and auditory hallucinations. She does report having some burning sensation in her esophagus after taking the medications Mental Status Examination Appearance: Appropriate Consciousness: Alert Orientation: x4 Motor Activity: Normal gait Speech: Unremarkable Language: Adequate Fund of Knowledge: Adequate Attention and Concentration: Adequate Memory: Unremarkable Mood: Appropriate Affect: Labile Thought Process & Associations: Intact Thought Content: Bizarre thinking Hallucination Type: None Delusion Type: Bizarre, Paranoid Suicidal Ideation: Yes Suicidal Plan: No Suicidal Intention: No Homicidal Ideation: No Homicidal Plan: No Homicidal Intention: No Insight: Poor Judgment: Poor Assessment and Plan - Assessment (1) Unspecified psychosis Code(s): F29 - Unspecified psychosis not due to a substance or known physiological condition Status: Acute - Plan Plan: Patient seems to be responding appropriately to psychotropics. Less intrusive, less obsesses with delusions, apparently more insightful. Increase Abilify to 30 mg daily Order first dose of Abilify Maintena 400 mg im stat Order Protonix 20 mg bid for esophageal pain Justification for Continued Inpatient Stay: Patient continues to be acutely psychotic, increase Abilify to 30 mg daily.
[2018-07-01] MEDS: Senna/Docusate Sodium 8.6/50 MG Tablet PO SCH ×2 (10:04→21:49)
[2018-07-01] MEDS: Pantoprazole Sodium 20 MG DR Tablet PO SCH ×2 (10:04→21:49)
[2018-07-02] MEDS: Senna/Docusate Sodium 8.6/50 MG Tablet PO SCH ×2 (08:56→20:58)
[2018-07-02] MEDS: Pantoprazole Sodium 20 MG DR Tablet PO SCH ×2 (08:56→20:58)
[2018-07-02] MEDS ORDERED: ABILIFY MAINTENA 400MG IM ONE (10:00)
--- NOTE | 2018-07-02 12:35 | P.PNPSY ---
Subjective Remarks: Patient was seen and case discussed with nursing. Patient remains childlike and disorganized. Thought processes tangential. She is behaving well on the unit. Compliant with medications. Admits to talking to herself. She is due for her Abilify maintaina today Mental Status Examination Appearance: Appropriate Consciousness: Alert Orientation: x4 Motor Activity: Normal gait Speech: Unremarkable Language: Adequate Fund of Knowledge: Adequate Attention and Concentration: Adequate Memory: Unremarkable Mood: Appropriate Affect: Labile Thought Process & Associations: Disorganized Thought Content: Bizarre thinking Hallucination Type: None Delusion Type: Bizarre, Paranoid Suicidal Ideation: Yes Suicidal Plan: No Suicidal Intention: No Homicidal Ideation: No Homicidal Plan: No Homicidal Intention: No Insight: Poor Judgment: Poor Assessment and Plan - Assessment (1) Unspecified psychosis Code(s): F29 - Unspecified psychosis not due to a substance or known physiological condition Status: Acute - Plan Plan: Continue current treatment plan, I spoke with mom and she chose to wait until Wednesday to speak with Dr. Ibarra about her Abilify Maintena. Justification for Continued Inpatient Stay: Patient would decompensate in a less restrictive setting
[2018-07-03] MEDS: Senna/Docusate Sodium 8.6/50 MG Tablet PO SCH ×2 (08:52→21:38)
[2018-07-03] MEDS: Pantoprazole Sodium 20 MG DR Tablet PO SCH ×2 (08:53→21:38)
--- NOTE | 2018-07-03 09:31 | P.PNPSY ---
Subjective Remarks: Patient was seen and case discussed with nursing. Patient is pleasant and cooperative with exam. Behavior remains childlike and silly. However, no delusions were elicited today. CIWA is 0. We discussed her habit of starting to read books in the middle of the book. She denies suicidal or homicidal ideation intent or plan Mental Status Examination Appearance: Appropriate Consciousness: Alert Orientation: x4 Motor Activity: Normal gait Speech: Unremarkable Language: Adequate Fund of Knowledge: Adequate Attention and Concentration: Adequate Memory: Unremarkable Mood: Appropriate Affect: Labile Thought Process & Associations: Disorganized Thought Content: Bizarre thinking Hallucination Type: None Delusion Type: Bizarre Suicidal Ideation: Yes Suicidal Plan: No Suicidal Intention: No Homicidal Ideation: No Homicidal Plan: No Homicidal Intention: No Insight: Poor Judgment: Poor Assessment and Plan - Assessment (1) Unspecified psychosis Code(s): F29 - Unspecified psychosis not due to a substance or known physiological condition Status: Acute - Plan Plan: Continue current treatment plan, I spoke with mom and she chose to wait until Wednesday to speak with Dr. Ibarra about her Abilify Maintena. Justification for Continued Inpatient Stay: Patient would decompensate in a less restrictive setting
[2018-07-04] MEDS: Pantoprazole Sodium 20 MG DR Tablet PO SCH ×2 (08:52→21:06)
[2018-07-04] MEDS: Senna/Docusate Sodium 8.6/50 MG Tablet PO SCH ×2 (08:52→21:06)
[2018-07-04] MEDS ORDERED: ABILIFY MAINTENA 400 MG IM ONE (12:00)
--- NOTE | 2018-07-04 13:07 | P.PNPSY ---
Subjective Remarks: I have seen and examined this patient today for psychiatric reevaluation. I have review the weekend documentation. I also have communicated with his mother this morning. Discussed the case with nurse in charge. On evaluation the patient is calm, cooperative, pleasant. Childish, aggressive, but able to answer my questions appropriately. She reports feeling better, reports that she is bored here and wants to go home to watch the fireworks tonight. The patient denies depression, denies anxiety, denies tash and psychosis. She denies suicidal and homicidal ideation, denies salt and auditory hallucinations. She is oriented 3. Compliant medications, no significant side effects. Today I have had discussion with the mother regarding the importance of placing this patient in depot medication. Mother was concerned about potential side effects, but I address carefully discussed with her and she finally agreed. Mental Status Examination Appearance: Appropriate Consciousness: Alert Orientation: x4 Motor Activity: Normal gait Speech: Unremarkable Language: Adequate Fund of Knowledge: Adequate Attention and Concentration: Adequate Memory: Unremarkable Mood: Appropriate Affect: Labile Thought Process & Associations: Disorganized Thought Content: Bizarre thinking Hallucination Type: None Delusion Type: Bizarre Suicidal Ideation: Yes Suicidal Plan: No Suicidal Intention: No Homicidal Ideation: No Homicidal Plan: No Homicidal Intention: No Insight: Poor Judgment: Poor Assessment and Plan - Assessment (1) Unspecified psychosis Code(s): F29 - Unspecified psychosis not due to a substance or known physiological condition Status: Acute - Plan Plan: Patient continues to show symptoms of psychosis. However, significantly improvement. Today will order Abilify Maintena 400 mg Justification for Continued Inpatient Stay: She remains psychotic.
[2018-07-05] MEDS: Senna/Docusate Sodium 8.6/50 MG Tablet PO SCH ×2 (08:25→20:53)
[2018-07-05] MEDS: Pantoprazole Sodium 20 MG DR Tablet PO SCH ×2 (08:25→20:53)
--- NOTE | 2018-07-05 11:33 | P.NPEVAL ---
Disclaimer Patient was given an explanation of the nature and purpose of the evaluation. Patient agreed to proceed with the evaluation and treatment plan. 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 She reported that she is originally from [place], [place], and earned her Bachelor degree from [employer]. 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 While living in [place] as a child, she related an accident she sustained at the local [employer] where she injured her back and received some sort of settlement. She is referred for baseline neuropsychological evaluation to assess cognitive, behavioral and emotional aspects of the injury. - Additional Psychosocial History Smoking Status: Never smoker Tobacco Use In Past 30 Days: No Hand Dominance: Right PMFSH - History History Provided By: Patient - Medical History Medical History: Medical History (Last Updated 06/23/18 @ 23:15 by Gopi Faulkner) Patient denies medical problems - Surgical History Surgical History: Surgical History (Last Updated 06/23/18 @ 23:16 by Gopi Faulkner) No history of previous surgery - Tobacco History Second Hand Smoke Exposure: No Tobacco Use In Past 30 Days: No Smoking Status: Never smoker - Alcohol History How Often Do You Have a Drink Containing Alcohol: Never - Substance Use History Substance History: No History of Abuse - Travel History Recent Travel in the [place] Within the Last 8 Weeks: No Recent Travel Out of the Country Within the Last 8 Weeks: No - Immunization History Tetanus Immunization: Unsure Hx Influenza Vaccine This Season: No Medications Active Medications Al Hydrox/Mg Hydrox/Simethicone (Mag-Al Plus Susp Liq) 30 ml PO Q6H PRN PRN Reason: DYSPEPSIA Al Hydroxide/Mg Hydroxide (Milk Of Magnesia Liq) 30 ml PO Q12H PRN PRN Reason: Mild Constipation Aripiprazole (Abilify) 30 mg PO DAILY [facility] Last Admin: 07/05/18 08:25 Dose: 30 mg Bisacodyl (Dulcolax Supp) 10 mg RECTAL DAILY PRN PRN Reason: SEVERE CONSITIPATION Flumazenil (Romazecon Inj) 0.2 mg IV.PUSH Q1M PRN PRN Reason: OVERSEDATION Haloperidol Lactate (Haldol Inj) 1 mg IV.PUSH Q15M PRN PRN Reason: for severe agitation Lactulose (Lactulose Liq) 30 ml PO DAILY PRN PRN Reason: SEVERE CONSITIPATION Lorazepam (Ativan) 1 mg PO Q4H PRN PRN Reason: for CIWA 8-10 Lorazepam (Ativan) 2 mg PO Q2H PRN PRN Reason: for CIWA 11-14 Lorazepam (Ativan Inj) 2 mg IV.PUSH Q1H PRN PRN Reason: for CIWA 15-20 Lorazepam (Ativan Inj) 2 mg IV.PUSH Q15M PRN PRN Reason: for CIWA > 20 Lorazepam (Ativan Inj) 1 mg IV.PUSH Q4H PRN PRN Reason: for CIWA 8-10 Lorazepam (Ativan Inj) 2 mg IV.PUSH Q2H PRN PRN Reason: for CIWA 11-14 Pantoprazole Sodium (Protonix) 20 mg PO BID [facility] Last Admin: 07/05/18 08:25 Dose: 20 mg Senna/Docusate Sodium (Modesta-Colace) 1 tab PO BID [facility] Last Admin: 07/05/18 08:25 Dose: 1 tab Sennosides (Senokot) 17.2 mg PO Q12H PRN PRN Reason: Moderate Constipation Mental Status Assessment - Mental Status Orientation: oriented to: Self, Place, Time, Situation Mental Status: WFL: Thought processing, Language/interactions, Attention, Learning/memory, Problem-solving, Visuospatial/construction, Self-regulation, Other Adjustment/Coping Assessment - Adjustment/Coping Adjustment/Coping: None: Depression, Anxiety, Moderate: Awareness, Insight - Observation In terms of emotional functioning, the patient demonstrated challenges. This patient demonstrated no signs of agitation, impulsivity or disinhibition, nor was there remarkable evidence of a formal thought disorder or psychosis. There was no evidence of depression or anxiety. The Geriatric Depression Scale-Short Form was administered given the ease to which it is administered to persons with known neurological pathology, and the patient endorsed 0 of 15 symptoms, which falls within the non depressed range. Thought content was free from suicidal, homicidal or paranoid ideation, and thought processes were logical and goal-directed. The patients mood was euthymic, and her affect was stable and appropriate. The patient appears to possess questionable insight and awareness into their situation and within the limits of this brief evaluation, questionable judgment. - Goals/Team Members LTG Status: Deferred STG Status: Deferred Team Members: Neuropsychologist Effort Effort: Average Cognition Assessment - Attention/Processing Speed Rating: WFL: Attention/processing, Language, Immediate & delayed memory, Visual perception, Spatial judgment, Executive, Impaired: Awareness - insight adjustment Observation: The patient was alert and oriented to person, place, time and circumstances surrounding the recent hospitalization. The Mini-Mental State Exam was administered, and the patient obtained a score of 29 out of 30 points, which falls in the normal range. However, on further evaluation, specific deficits were identified. In terms of attention skills, the patient exhibited normal abilities. The patient was able to remain on task and remember basic and complex verbal instructions. The patient was able to spell the word WORLD backwards and she was able to complete mathematical problems. In terms of memory functioning, the patient exhibited normal abilities. The patients initial registration of verbal information was normal, and the patient was able to improve their memory with repetition. After a period of delay, the patient was able to recall this information from memory. More specifically, on the Luria Memory Words Test-Short Form, the patients trial one performance was 7 of 7 words, trial five performance was 7 of 7 words, the patients Total Learning score was 35 (above cut-off), and the patients Delayed recall score was 7 of 7 words (above cut-off). The patients ability to recall verbal information in a paragraph format was considered normal, as she was able to recall 100% of this information after a brief period of time. In terms of speech and language skills, the patient demonstrated normal abilities. The patients initiated spontaneous conversation throughout the assessment. Speech was characterized by adequate prosody, grammar, articulation, volume and rate. No remarkable dysnomic or paraphasic errors were noted either during conversational speech or on confrontation naming tasks. Reading recognition skills were adequate, as were writing skills. The patients comprehension for basic one- and two-stage commands was normal. She earned a standard score of 112 (percentile rank of 79) on the WRAT-4 Reading Recognition subtest, and this performacne is commensurate with estimates of her baseline level of abilities. In terms of problem-solving skills, the patient exhibited normal abilities. The patients ability to understand abstraction reasoning was normal, as reflected in her ability to abstract essential shared characteristics of objects and concepts. Mathematical reasoning skills were also normal. Speed of information processing, as evaluated by both the Letter and Category Fluency Tests was normal. Finally, there was no evidence of ideomotor apraxia or constructional difficulties during this brief evaluation. Summary/Diagnosis - Summary/Impressions Summary: Neuropsychological screening evaluation is consistent with normal neurocognitive functioning for a person of this age and educational background. Her attention, memory, learning, speech and language and complex problem solving skills are within normal limits. Issues she presents with are best explained by her psychiatric condition. Recommendations Recommendations: Continued psychiatric evaluation and treatment of her unspecified psychotic disorder is recommended. Her decision making capacity will fluctuate with her psychiatric symptoms.
--- NOTE | 2018-07-05 14:41 | P.PNPSY ---
Subjective Remarks: Patient seen and examined with nurse and counselor. Chart reviewed. I do note a signed order of temporary guardianship on chart. Case discussed with nursing staff. No behavioral issues noted overnight. Case discussed with Dr. Ibarra , who reports he had been considering discharge for patient today. Case discussed with counselor, who reports contact has not yet been made with guardian about possible discharge. On my exam, patient is hopeful for discharge soon. 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 In any event, patient now says that she will take time off from this work to convalesce after discharge. She denies any SI/HI. Denies any AVH. Denies any issues with mood. Denies any previous history of psychiatric issues or suicide attempts. Denies any chemical dependency issues. Reports that she lives alone in a condo in [place]. Denies access to guns/firearms. Denies any side effects from medications. Patient received Abilify Maintena yesterday but says that she probably will not continue to receive injections on outpatient basis. I have discussed with her injection schedule and need for temporary supplementation with oral Abilify nonetheless and have encouraged her to discuss any medication changes with provider prior to making such a change. No physical complaints. Vital Signs Temp Pulse Resp BP Pulse Ox 07/05/18 05:47 98.6 F 69 17 97/62 L 98 07/04/18 17:47 97.1 F L 78 18 109/61 Intake and Output 07/04/18 07/05/18 07/05/18 22:59 06:59 14:59 Intake Total 840 / 840 Balance 840 / 840 Intake: Oral 840 / 840 Other: Date of Last Bowel Movement 07/04/18 07/04/18 Laboratory Tests 06/23/18 06/23/18 06/23/18 23:25 23:25 23:25 WBC 8.9 Hgb 14.5 Plt Count 290 Sodium 142 Potassium 3.9 Chloride 112 H Carbon Dioxide 20.2 L BUN 16 Creatinine 0.72 Estimated GFR Greater than 89 AST 12 L ALT 20 Alkaline Phosphatase 52 TSH 1.440 U Benzodiazepines Scrn Pos H Serum Alcohol Less than 3 Labs reviewed. Review of Systems All other systems reviewed negative except as stated in HPI Mental Status Examination Appearance: Appropriate Consciousness: Alert Orientation: x4 Motor Activity: Normal gait, Other (No hand tremor, no cogwheeling, no dystonia , no dyskinesia noted.) Speech: Unremarkable Language: Adequate Fund of Knowledge: Adequate Attention and Concentration: Adequate Memory: Unremarkable Mood: Appropriate Affect: Appropriate Thought Process & Associations: Intact Thought Content: Delusional Hallucination Type: None Delusion Type: Other (Grandiose, perhaps softening) Suicidal Ideation: No Suicidal Plan: No Suicidal Intention: No Homicidal Ideation: No Homicidal Plan: No Homicidal Intention: No Insight: Poor Judgment: Poor Assessment and Plan - Assessment (1) Unspecified psychosis Code(s): F29 - Unspecified psychosis not due to a substance or known physiological condition Status: Acute - Plan Plan: I think it is prudent to hold off on discharge until contact can be made with guardian to discuss plan for discharge. Counselor will try to reach out to guardian today. I will continue oral Abilify supplementing Maintena administered yesterday. Neuropsychological evaluation noted and appreciated. Continue to monitor on inpatient unit. Continue other care as ordered. Justification for Continued Inpatient Stay: Risk for decompensation in less restrictive environment. Discharge Planning: Possible discharge next 1-2 days.
[2018-07-05 18:18] VITALS: O2SAT 100
[2018-07-06 07:03] VITALS: BP 95/65; PULSE 71; RESP 16; TEMP 98.2
[2018-07-06] MEDS: Senna/Docusate Sodium 8.6/50 MG Tablet PO SCH (08:27)
[2018-07-06] MEDS: Pantoprazole Sodium 20 MG DR Tablet PO SCH (08:27)
--- NOTE | 2018-07-06 09:39 | P.DSPSY ---
Psychiatry Discharge Summary Inpatient Psychiatric care?: Yes Advance Directives: No Mental Health Advance Directive: No Health Care Proxy: No - Admission Admission Date: June 24, 2018 15:03 - Admission Diagnosis (1) Unspecified psychosis Code(s): F29 - Unspecified psychosis not due to a substance or known physiological condition Brief History: The patient is a 32 year-old woman, domiciled with her mother claudia Lynch, single, unemployed, with psychiatric history of anxiety, but no previous psychiatric hospitalizations, no previous suicidal attempts, she has been seen once here in the ER on the [place] at, but clear, no significant medical history, who is here under BA initiated by PD. According to paperwork the patient was hearing voices telling her to harm herself. The patient disputes this. She reports that she was having an argument with her mother. According to PD there is a recording of her acting bizarre that the mother took. Patient denies AH/VH, SI/HI, drug or alcohol use. Symptoms moderate, duration unknown, no obvious aggravating/alleviating factors. Chart was reviewed. Collateral information from her mother was obtained. 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 Poorly. 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 She is very bizarre, and oddly related. With a very bizarre affect, laughing inappropriately. She denies suicidal and homicidal ideation, she denies visual and auditory hallucinations PPHx: Anxiety, Xanax 1 mg 3 times daily prescribed by PCP, no previous admissions, no previous suicidal PMHx: No past medical Substance Hx: The patient denies the use of illegal drugs and alcohol Family Hx: No family psychiatric history Social Hx: Patient was born and raised in [place], she she lives in [facility] with her mother, single, unemployed, Tobacco Use In Past 30 Days: No How Often Do You Have a Drink Containing Alcohol: Never Hospital Course: Patient was admitted to a locked, inpatient psychiatric unit. A neuropsychological evaluation was obtained. Appropriate precautions were in place throughout patient's hospital stay. Patient was seen and examined on the unit by psychiatry and also visited by counselor. Psychotropic medications were adjusted. Patient was started on long-acting injectable Abilify Maintena. Patient had improvement in presenting psychiatric symptomatology during the course of her hospital stay. Counselor has obtained collateral information from patient's mother/temporary guardian, and mother is reportedly comfortable with the patient being discharged home today. On the day of discharge: Patient seen and examined with nurse. Chart reviewed. Case discussed with nursing staff. No behavioral issues noted overnight. Case discussed with counselor. I have also discussed the case with the patient's outpatient psychiatrist, Dr. Worthington today. On my examination today, the patient is requesting discharge from the inpatient psychiatric unit today. She denies any suicidal or homicidal ideation, intent or plan. I can elicit no depressive or hypomanic/ manic symptoms. She denies any audiovisual hallucinations. She does not spontaneously verbalize any delusional material. When specifically asked, she continues to say that she will set her work for the [employer] aside for the time being. She denies any side effects from medications. Extensive psychoeducation regarding discharge medication regimen including need for subsequent Abilify Maintena injections and temporary supplementation with oral Abilify. No physical complaints. Weighing the relevant factors and based on the available evidence, I director of neurology that the patient no longer meets criteria for involuntary psychiatric hospitalization. There is no evidence of imminent risk of harm to self or others from mental illness, nor is there evidence of self- care deficit to support ongoing involuntary psychiatric hospitalization. She is requesting discharge from the inpatient psychiatric unit today, and I have no basis to retain her over her objection. Patient will be discharged today with psychiatric follow-up as arranged by counselor. Patient is also to follow up with primary care. I have counseled the patient regarding warning signs for need to return to the psychiatric emergency room as part of a general safety plan. - Discharge Discharge Date: 07/06/18 - Discharge Diagnosis (1) Unspecified psychosis Diagnosis: Principal (Improved versus admission) Code(s): F29 - Unspecified psychosis not due to a substance or known physiological condition Status: Acute Discharge Disposition: Home - Discharge Instructions Discharge Diet: Regular Diet Activities You Can Perform: Weight Bearing As Tolerat - Discharge Time > 30 minutes Mental Status Examination Appearance: Appropriate Consciousness: Alert Orientation: x4 Motor Activity: Normal gait, Other (No motor abnormalities noted.) Speech: Unremarkable Language: Adequate Fund of Knowledge: Adequate Attention and Concentration: Adequate Memory: Unremarkable Mood: Appropriate Affect: Appropriate, Euthymic Thought Process & Associations: Intact Thought Content: Other (Fairly appropriate overall) Hallucination Type: None Delusion Type: Other (Perhaps some residual delusional material as noted above.) Suicidal Ideation: No Suicidal Plan: No Suicidal Intention: No Homicidal Ideation: No Homicidal Plan: No Homicidal Intention: No Insight: Poor Judgment: Poor Mental Status Exam Remarks: Insight and judgment likely chronically poor. Discharge/Advance Care Plan - Results Vital Signs: Last Vital Signs Temp 98.2 F 07/06/18 06:00 Pulse 71 07/06/18 06:00 Resp 16 07/06/18 06:00 BP 95/65 L 07/06/18 06:00 Pulse Ox 100 07/06/18 06:00 Lab Results: Laboratory Results TSH 1.440 uIU/mL (0.358-3.740) 06/23/18 23:25 Summary of Procedures: None done Pending Results: None - Medications Number of antipsychotic medications at discharge: 1 (Abilify (Maintena and p.o.) ) - Discharge Care Plan Goals to Promote Your Health: * To prevent worsening of your condition and complications * To maintain your health at the optimal level Directions to Meet Your Goals: Take your medications as prescribed Follow your dietary instruction Follow activity as directed Keep your appointments as scheduled Take your immunizations and boosters as scheduled If your symptoms worsen call your PCP, if no PCP go to Urgent Care Center or Emergency Room For 24/05 questions related to your inpatient stay or results of tests pending at discharge, please contact Dr. Pj Mederos MD at [phone] Smoking is Dangerous to Your Health. Avoid second hand smoking
== END 2018-07-06 12:00 | disposition home or self-care (01) ==
LOC: NEPJ 22:47 → H270 06-24 15:03 → H260 06-28 14:39
PROVIDERS: ADMIT Psychiatry & Neurology Psychiatry; ATTEND Psychiatry & Neurology Psychiatry
DX: F29 Unspecified psychosis not due to a substance or known physiological condition